=== PATIENT | female | born 1940 | race Caucasian/White ===

== ENCOUNTER 2020-06-30 16:38 | Inpatient (IN) ==
[2020-06-30] MEDS ORDERED: ACETAMINOPHEN 325 MG TABLET PO PRN (17:45)
[2020-06-30] MEDS ORDERED: PROMETHAZINE 25 MG/1 ML VIAL IM PRN (17:45)
[2020-06-30] MEDS: LACTATED RINGERS 1,000 ML IV SCH (17:53)
[2020-06-30] MEDS: ONDANSETRON 4 MG/2 ML VIAL IV PRN (20:46)
[2020-06-30] MEDS: HYDROmorphone 2 MG/1 ML VIAL IV PRN (20:48)
[2020-07-01] MEDS: LACTATED RINGERS 1,000 ML IV SCH ×3 (05:06→17:28)
[2020-07-01 05:31] LABS: Basophils % 0.5 % (0.0-0.8); Eosinophils # 0.1 10*3/uL (0.0-0.87); Eosinophils % 1.6 % (0.00-10.9); Hematocrit 34.9 VOL% (35.7-47.0); Hemoglobin 10.6 GM/DL (12.0-16.0); Immature Granulocytes % 0.2 %; Immature Granulocytes Absolute 0.02 #; Lymphocytes # 0.6 10*3/uL (1.4-4.0); Lymphocytes % 7.1 % (21.3-54.2); Mean Corpuscular HGB Conc 30.4 GM/DL (32-36); Mean Corpuscular Volume 89.7 FL (87-102); Mean Platelet Volume 10.3 FL (9.6-12.0); Monocytes % 9.2 % (1.7-12.7); Neutrophils % 81.4 % (38.7-73.9); Platelet Count 211 T/CUMM (130-400); Red Blood Count 3.89 MC/CUMM (3.8-5.5); Red Cell Distribution Width 15.3 % (9.3-17.3); White Blood Count 8.8 T/CUMM (4-12)
[2020-07-01 06:01] LABS: Calcium 8.5 MG/DL (8.5-10.1); Osmolality,Calculated 276.8 MOS/KG (273-304); Potassium 3.9 MMOL/L (3.5-5.1)
[2020-07-01] MEDS: SERTRALINE 50 MG TABLET PO SCH (09:17)
[2020-07-01] MEDS: ENOXAPARIN 40 MG/0.4 ML SYRINGE SUBCUT SCH (09:17)
[2020-07-01] MEDS: PANTOPRAZOLE 40 MG TABLET PO SCH (09:18)
[2020-07-01] MEDS: ONDANSETRON 4 MG/2 ML VIAL IV PRN (10:25)
[2020-07-01] MEDS: HYDROmorphone 2 MG/1 ML VIAL IV PRN (20:58)
[2020-07-02] MEDS: LACTATED RINGERS 1,000 ML IV SCH ×2 (01:42→10:41)
[2020-07-02] MEDS ORDERED: LEVOTHYROXINE 150 MCG TABLET PO SCH (06:30)
[2020-07-02] MEDS: PANTOPRAZOLE 40 MG TABLET PO SCH (10:04)
[2020-07-02] MEDS: SERTRALINE 50 MG TABLET PO SCH (10:04)
[2020-07-02] MEDS: ENOXAPARIN 40 MG/0.4 ML SYRINGE SUBCUT SCH (10:04)
[2020-07-02 11:26] VITALS: BP 124/56
== END 2020-07-02 16:08 | disposition home or self-care (01) | DRG 376 ==
LOC: N.ED 16:38 → EDBD 16:38 → EDUNIT# 16:38 → N.EDINP 17:45 → N.3E 20:29
PROVIDERS: ADMIT Surgery; ATTEND Surgery